=== PATIENT | female | born 1990 | race African-American/Black ===

== ENCOUNTER 2022-07-17 04:41 | Day surgery (SDC) | payer OTHER ==
[2022-07-14 09:10] VITALS: BMI 29.0
[2022-07-17] MEDS ORDERED: MIDAZOLAM HCL 2 MG/2 ML SINGLE DOSE VIAL ONE (12:13)
[2022-07-17] MEDS ORDERED: PROPOFOL 20 ML ONE (12:13)
[2022-07-17] MEDS ORDERED: DEXAMETHASONE SOD PHOSPHATE 4 MG/1 ML VIAL ONE (12:50)
[2022-07-17] MEDS ORDERED: ONDANSETRON 4 MG/2 ML VIAL ONE (12:50)
[2022-07-17] MEDS ORDERED: IODINE/POTASSIUM IODIDE 5%/10% 14 ML BOTTLE NR ONE (13:02)
[2022-07-17] MEDS ORDERED: LIDOCAINE 1%/EPI 1:100000 (20 ML MULTI DOSE VIAL) IJ ONE (13:04)
[2022-07-17] MEDS ORDERED: FERRIC SUBSULFATE 500 ML BOTTLE TP ONE (13:04)
[2022-07-17 13:50] VITALS: RESP 18
[2022-07-17 16:31] VITALS: BP 118/72; PULSE 72; TEMP 97.8
== END 2022-07-17 16:20 | disposition home or self-care (01) ==
LOC: JASU-SURG 04:41
PROVIDERS: ATTEND Obstetrics & Gynecology
PROC: 0UBC7ZX Excision of Cervix, Via Natural or Artificial Opening, Diagnostic (ICD-10-PCS; principal; 2022-07-17 11:30)
DX: N87.1 Moderate cervical dysplasia (principal)
CPT/HCPCS: 88305-TC; 88307-TC; 88341-TC; 88342-TC

== ENCOUNTER 2022-07-18 12:08 | Emergency (ER) | payer OTHER ==
[2022-07-18 12:24] VITALS: RESP 18; BMI 29.0
[2022-07-18] MEDS ORDERED: SODIUM CHLORIDE 0.9% 1000 ML INFUS.BAG IV ONE (12:40)
[2022-07-18] MEDS ORDERED: ONDANSETRON 4 MG/2 ML VIAL IVPUSH ONE (12:52)
[2022-07-18] MEDS ORDERED: ACETAMINOPHEN 1000 MG/100 ML BAG IVPB ONE (13:09)
[2022-07-18] MEDS ORDERED: ACETAMINOPHEN INJECTION 100 ML IVPB ONE (13:18)
[2022-07-18] MEDS ORDERED: ONDANSETRON 4 MG/2 ML VIAL ONE (13:18)
[2022-07-18 13:39] LABS: HEMATOCRIT 35.2 % (32.4-45.2); HEMOGLOBIN 11.5 GM/dL (10.7-15.3); MCH 27.6 pg (25.7-33.7); MCHC 32.8 g/dl (32.0-36.0); MEAN CELL VOLUME 84.2 fl (80-96); PLATELET COUNT 218 10^3/uL (134-434); RBC 4.18 M/mm3 (3.60-5.2); RDW 15.3 % (11.6-15.6); WHITE BLOOD COUNT 20.3 K/mm3 (4.0-10.0)
[2022-07-18 13:46] LABS: INR 1.12 (0.83-1.09)
[2022-07-18 13:48] LABS: ACTIVATED PTT 29.4 SECONDS (25.2-36.5)
[2022-07-18 13:57] LABS: VENOUS BASE EXCESS 0.8 mmol/L (-2-2); VENOUS O2 SATURATION 30.1 % (70-80); VENOUS PCO2 46.5 mmHg (38-52); VENOUS PH 7.377 (7.310-7.410)
[2022-07-18 14:02] LABS: ANISOCYTOSIS 0; HELMET CELLS 0; HOWELL-JOLLY BODIES 0; MACROCYTOSIS 0; OVALOCYTE 0; ROULEAU 0; SICKELED CELLS 0; TARGET CELLS 0; TEAR DROP CELLS 0; TOXIC GRANULATION 0
[2022-07-18 14:06] LABS: BLOOD UREA NITROGEN 14.1 mg/dL (7-18)
[2022-07-18 14:07] LABS: ALBUMIN 3.3 g/dl (3.4-5.0)
[2022-07-18 14:09] LABS: CREATININE 1.2 mg/dL (0.55-1.3)
[2022-07-18 14:11] LABS: BILIRUBIN,TOTAL 0.8 mg/dL (0.2-1); TOT PROT 6.8 g/dl (6.4-8.2)
[2022-07-18 14:13] LABS: CALCIUM 8.9 mg/dL (8.5-10.1)
[2022-07-18] MEDS ORDERED: POTASSIUM CHLORIDE ORAL LIQUID 20 MEQ/15 ML PO ONE (14:16)
[2022-07-18] MEDS ORDERED: MAGNESIUM SULF 50% (8.12 MEQ/2 ML-1 GM VIAL) IVPB ONE ×2 (14:16→15:11)
[2022-07-18] MEDS ORDERED: POTASSIUM CHLORIDE ORAL LIQUID 20 MEQ/15 ML ONE (14:24)
[2022-07-18] MEDS ORDERED: MAGNESIUM SULFATE IN WATER 2 GM/50 ML IVPB IVPB ONE ×2 (14:24→15:16)
[2022-07-18 15:05] LABS: MAGNESIUM 1.6 mg/dL (1.8-2.4)
[2022-07-18] MEDS ORDERED: SODIUM CHLORIDE 0.9% 500 ML INFUS.BAG IV ONE (15:28)
[2022-07-18] MEDS ORDERED: IBUPROFEN 600 MG TABLET (FP) PO ONE ×2 (15:32→15:55)
[2022-07-18 15:41] LABS: EPI CELLS 20 /uL (0-25.1); HYALINE CASTS 1 /uL (0-3.1); PH,URINE 5.5 (5.0-8.0); URINE APPEARANCE TURBID; URINE BACTERIA 70 /uL (0-1359); URINE BILIRUBIN NEGATIVE (NEGATIVE); URINE COLOR YELLOW; URINE GLUCOSE (UA) NEGATIVE (NEGATIVE); URINE KETONE TRACE (NEGATIVE); URINE LEUK ESTERASE 3+ (NEGATIVE); URINE NITRITE NEGATIVE (NEGATIVE); URINE PROTEIN 1+ (NEGATIVE); URINE RBC 150 /uL (0-23.9); URINE WBC 3410 /uL (0-25.8)
[2022-07-18] MEDS ORDERED: DEXAMETHASONE 4 MG TABLET (FP) PO ONE (15:44)
[2022-07-18] MEDS ORDERED: PENICILLIN V POTASSIUM 500 MG TABLET PO ONE (15:44)
[2022-07-18] MEDS ORDERED: CEPHALEXIN 250 MG/5 ML ORAL SUSPENSION PO ONE (15:47)
[2022-07-18] MEDS ORDERED: CEFTRIAXONE 1 GM in DEXTROSE 5%-WATER - 100 ML IVPB ONE (15:48)
[2022-07-18] MEDS ORDERED: DEXAMETHASONE SOD PHOSPHATE 10 MG/1 ML VIAL ONE (15:55)
[2022-07-18] MEDS ORDERED: CEFTRIAXONE 1 GM/50 ML BAG ONE (15:55)
[2022-07-18 16:45] VITALS: BP 93/59; PULSE 100; TEMP 99.3
== END 2022-07-18 17:15 | disposition home or self-care (01) ==
LOC: JER 12:08
PROC: 3E03329 Introduction of Other Anti-infective into Peripheral Vein, Percutaneous Approach (ICD-10-PCS; principal; 2022-07-18)
PROC: 3E033GC Introduction of Other Therapeutic Substance into Peripheral Vein, Percutaneous Approach (ICD-10-PCS; 2022-07-18)
PROC: 3E033GC Introduction of Other Therapeutic Substance into Peripheral Vein, Percutaneous Approach (ICD-10-PCS; 2022-07-18)
PROC: 3E033GC Introduction of Other Therapeutic Substance into Peripheral Vein, Percutaneous Approach (ICD-10-PCS; 2022-07-18)
DX: R42 Dizziness and giddiness (principal); I95.9 Hypotension, unspecified; R00.0 Tachycardia, unspecified; R50.81 Fever presenting with conditions classified elsewhere; R11.2 Nausea with vomiting, unspecified; R19.7 Diarrhea, unspecified; M79.10 Myalgia, unspecified site; Z20.822 Contact with and (suspected) exposure to COVID-19
CPT/HCPCS: 0241U-QW; 36415; 71045-TC-FY; 80053; 81003; 82803; 83605; 83735; 84703; 85025; 85610; 85730; 86850; 86900; 86901; 87040; 87077; 87086; 87651; 93005; 93010; 99285-25